=== PATIENT | male | born 1960 | race Caucasian/White ===

== ENCOUNTER 2021-12-18 22:30 | Inpatient (IN) | payer MEDICARE ==
[~2021-12-18] VITALS: Ht 185.4 cm; Wt 140.3 kg
[2021-12-18 23:07] LABS: BASO % 0.5 % (0.0-2.0); EOS # 0.4 K/mm3 (0.0-0.7); EOS % 5.5 % (0.0-4.0); GRAN # 4.8 K/mm3 (1.4-6.5); GRAN % 59.9 % (42.2-75.2); HEMATOCRIT 45.5 % (42.0-52.0); HEMOGLOBIN 15.5 g/dl (13.5-18.0); LYMPH # 1.8 K/mm3 (1.2-3.4); MEAN CELL VOLUME 87 fl (80.0-100.0); MEAN CORPUSCULAR HEMOGLOBIN 30 pg (27-31); MEAN CORPUSCULAR HGB CONC 34 g/dl (33.0-37.0); MEAN PLATELET VOLUME 10.3 fl (7.4-10.4); MONO # 0.8 K/mm3 (0.1-0.6); MONO % 10.5 % (1.7-9.3); PLATELET COUNT 289 K/mm3 (130-400); RED BLOOD COUNT 5.26 M/mm3 (4.20-5.60); REDCELL DISTRIBUTION WIDTH-CV 13.8 % (11.5-14.5)
[2021-12-18 23:20] LABS: ARTERIAL BLD GAS O2 SATURATION 96.9 % (92-100); ARTERIAL BLD GAS TCO2 CT 26.3; ARTERIAL BLOOD GAS BASE EXCESS 0.4 (-2-2); ARTERIAL BLOOD GAS PCO2 40.7 mmHg (35-45); ARTERIAL BLOOD GAS PO2 88.9 mmHg (80-100); ARTERIAL BLOOD GAS pH 7.41 (7.35-7.45)
[2021-12-18 23:21] LABS: ALBUMIN 2.9 gm/dL (3.4-4.8); BILIRUBIN,TOTAL 0.4 mg/dL (0.2-1.2); C-REACTIVE PROTEIN 1.8 mg/dL (0.00-0.50); CALCIUM 9.8 mg/dL (8.4-10.2); CREATININE, serum 0.85 mg/dL (0.72-1.25); POTASSIUM 4.2 mmol/L (3.5-4.5); TOTAL PROTEIN 7.1 gm/dL (6.2-8.1)
[2021-12-18 23:28] LABS: INR 1.1 (0.8-3.0); PROTHROMBIN TIME 11.9 SECONDS (9.7-12.8)
[2021-12-18 23:31] LABS: TROPONIN-I 0.057 ng/mL (0.00-0.033)
[2021-12-19] VITALS (108 sets, daily range): BP systolic 107–165; BP diastolic 65–99; PULSE 62–108; TEMP 97.9–101.9; O2SAT 78–100
[2021-12-19] MEDS ORDERED: PRAVACHOL 20MG20 MG PO (02:36)
[2021-12-19] MEDS ORDERED: OMEGA-3 1000 MG1 CAP PO (02:36)
[2021-12-19] MEDS ORDERED: LOFIBRA160 MG PO (02:36)
[2021-12-19] MEDS ORDERED: LASIX 20MG TABL20 MG PO (02:36)
[2021-12-19] MEDS ORDERED: ZESTRIL40 MG PO (02:36)
[2021-12-19] MEDS ORDERED: GLUCOPHAGE XR500 M1 PO (02:37)
[2021-12-19] MEDS ORDERED: LOPRESSOR 225 MG/TAB PO ×2 (02:37→03:27)
[2021-12-19] MEDS ORDERED: CYMBALTA 60MG60 MG PO (02:37)
[2021-12-19] MEDS ORDERED: PROSCAR 5MG5 MG PO (02:38)
[2021-12-19] MEDS ORDERED: ASPIRIN 81M81 MG/TA2 PO (02:38)
[2021-12-19] MEDS ORDERED: CLINORIL 2200 MG/TAB PO (02:38)
--- NOTE | 2021-12-19 04:54 | NUR ---
PT RECEIVED FROM ER VIA STRETCHER AT 0340. PT TRANSPORTED ON ROOM AIR, REQUESTED A FEW MINUTES OFF BIPAP TO REST AND HAVE WATER. PULSE OX 94% ON ROOM AIR. PT WITH NOTED DYSPNEA. LUNG SOUNDS COARSE THROUGHOUT. TEMPERATURE FEBRILE AT 101.9. CALL TO NOTIFY FANNY COX. STATES WILL PLACE ORDER FOR TYLENOL AND ADDED ANTIBIOTIC, WELL SECOND SET OF BLOOD CULTURES. AWAITING BLOOD CULTURE DRAW PRIOR TO INITIATING ORDERED ANTIBIOTICS PER NEW CAR GET READY MECHANIC. PT SETTLED INTO BED AND BIPAP REPLACED AFTER APPROXIMATELY 15 MINUTES. TOLERATING WELL. WILL CONTINUE TO MONITOR.
[2021-12-19 06:08] LABS: CHOLESTEROL RISK RATIO 4.8
[2021-12-19 06:29] LABS: TROPONIN-I 6 HR POST INITIAL 0.077 ng/mL (0.00-0.033)
--- NOTE | 2021-12-19 11:47 | NUR ---
REPORT CALLED TO JUSTUS RILEY. ALL QUESTIONS ANSWERED. PT WHEELED UP TO ROOM 347. JUSTUS RILEY MET BEDSIDE. DAUGHTER JANAY UPDATED ON TRANSFER.
--- NOTE | 2021-12-19 11:51 | NUR ---
PT TO ROOM 347 FROM ICU WITH REPORT FROM CESAR RILEY ICU. PT ORIENTED TO ROOM. VOIDED ON ARRIVAL. PT IS A/O X4. O2 @4L PNC. PT DENIES SOB OR NEEDS LATER.
--- NOTE | 2021-12-19 13:58 | NUR ---
TX REFUSED PT WANTS TO SLEEP
[2021-12-20] VITALS (10 sets, daily range): BP systolic 94–161; BP diastolic 45–84; PULSE 60–93; TEMP 97.3–98
--- NOTE | 2021-12-20 00:12 | NUR ---
Report received from OSVALDO Pinto. Patient is A&Ox3 and pleasant. Full body assessment completed and vital signs are WNL. Upon auscultation the patients lower lobes are coarse, patient denies SOA. Patient will be NPO by midnight. Patient denies pain at this time. Call light within reach.
[2021-12-20 06:46] LABS: BASO % 0.2 % (0.0-2.0); GRAN # 14.2 K/mm3 (1.4-6.5); GRAN % 83.4 % (42.2-75.2); HEMATOCRIT 40.7 % (42.0-52.0); HEMOGLOBIN 13.8 g/dl (13.5-18.0); LYMPH # 1.5 K/mm3 (1.2-3.4); LYMPH % 9.1 % (20.0-51.0); MEAN CELL VOLUME 88 fl (80.0-100.0); MEAN CORPUSCULAR HEMOGLOBIN 30 pg (27-31); MEAN CORPUSCULAR HGB CONC 34 g/dl (33.0-37.0); MEAN PLATELET VOLUME 10.6 fl (7.4-10.4); MONO % 6.1 % (1.7-9.3); PLATELET COUNT 339 K/mm3 (130-400); RED BLOOD COUNT 4.62 M/mm3 (4.20-5.60)
[2021-12-20 07:08] LABS: CALCIUM 8.7 mg/dL (8.4-10.2); CREATININE, serum 0.98 mg/dL (0.72-1.25); POTASSIUM 4.3 mmol/L (3.5-4.5)
--- NOTE | 2021-12-20 08:12 | NUR ---
Pt. sitting up in chair at bedside. Attempted to do morning (shift) assessment. Tech here to do Echo. Dr. Salazar also here to see patient. Pt. also scheduled for stress test this morning. Will complete assessment when patient returns to room.
--- NOTE | 2021-12-20 08:12 | NUR ---
Spoke to Melanie SAAVEDRA this am about patient blood sugars and vitals signs. adjustments made to medications. rounded & echo being completed. Will hold off on medication until Lexiscan completed. Patient remains NPO
--- NOTE | 2021-12-20 12:19 | NUR ---
Patient has been back from Radiology (for stress test) for approx 2 hours. Patient is resting in bed. Ice water placed at bedside and jello until lunch is delivered. Patient report chronic arthritis pain currently but denies the need for any pain medications. Call light within his reach. He denies further needs at this time
--- NOTE | 2021-12-20 14:59 | NUR ---
Kraft Digester Operator and SW student met with patient to discuss discharge planning. Patient is tearful upon arrival and states he is sad. Patient advised his dad recently and he was unable to attend the as he was too sick. Patient agrees to answer intake questions. Patient lives in [place] with his , Nneka (ph#[phone]) and also advised his daughter, Lindsay (ph#[phone]) lives in [place]. Patient sees Dr. Justin for primary care and obtains medications from [facility]. Patient uses a cane for ambulation and no other DME. Patient does not use home oxygen but is currently on four liters. Patient states he thinks his daughter may be his DPOA-HC, however SW did not locate copy in EMR. SW also contacted Dr. Justin's office and was advised they do not have any Advance Directives on file. SW discussed Home Health services with patient who states he is agreeable to this, but wants to discuss it with his family. SW contacted patient's and left a voicemail. Discharge Plan: Home with HH
--- NOTE | 2021-12-20 19:30 | NUR ---
Patient sitting up at edge of bed. He did well with dinner. Minimal needs this afternoon. His daughter visisted. Bedside report to Martha.
[2021-12-21 00:21] VITALS: BP 115/61; PULSE 84; TEMP 98
--- NOTE | 2021-12-21 01:01 | NUR ---
Report recevied from Doretha Teresa RN. Patient is A&Ox3 and pleasant. Patient is here due to SOA. Full body assessment completed and vital are WNL. Patients 02 is in the low 90's, patient does not have his oxygen on currently. O2 via NC was placed back on the patient and O2 saturation increased. Patient is tolerating oral medications and foods well. No complaints of pain at this time. Call light within reach.
[2021-12-21 04:05] VITALS: BP 131/97; PULSE 69; TEMP 98.1
[2021-12-21 06:39] LABS: BASO % 0.1 % (0.0-2.0); GRAN # 12.1 K/mm3 (1.4-6.5); GRAN % 85.2 % (42.2-75.2); HEMATOCRIT 42.4 % (42.0-52.0); HEMOGLOBIN 14.2 g/dl (13.5-18.0); LYMPH # 1.5 K/mm3 (1.2-3.4); LYMPH % 10.2 % (20.0-51.0); MEAN CELL VOLUME 89 fl (80.0-100.0); MEAN CORPUSCULAR HEMOGLOBIN 30 pg (27-31); MEAN CORPUSCULAR HGB CONC 34 g/dl (33.0-37.0); MEAN PLATELET VOLUME 10.6 fl (7.4-10.4); MONO # 0.5 K/mm3 (0.1-0.6); MONO % 3.4 % (1.7-9.3); PLATELET COUNT 353 K/mm3 (130-400); RED BLOOD COUNT 4.78 M/mm3 (4.20-5.60); REDCELL DISTRIBUTION WIDTH-CV 13.9 % (11.5-14.5)
[2021-12-21 07:01] LABS: CALCIUM 8.6 mg/dL (8.4-10.2); CREATININE, serum 0.92 mg/dL (0.72-1.25); POTASSIUM 4.5 mmol/L (3.5-4.5)
[2021-12-21 07:55] VITALS: BP 149/74; PULSE 74; TEMP 97.8
--- NOTE | 2021-12-21 09:00 | NUR ---
pt assessment complete. pt shows dyspnea at rest and on exertion. reminded pt to have his O2 on at 4L/min NC. pt is wheezing, but state no complaints of pain at this time. pt tolerated all medicaitions well. pt education on using his IS every hour and that it needs to be done 10x every hour as well. pt stated he would like a shower but only after he is seen by the doctor. SBA while pt got up from chair and back into bed. pt is very independent. Pt is in bed resting awaiting to discharge w/ call light in reach.
[2021-12-21] MEDS ORDERED: PROAIR HFA0.09 MG/AC IH ×2 (10:53)
[2021-12-21] MEDS ORDERED: PREDNISONE20 MG PO ×2 (10:56)
[2021-12-21] MEDS ORDERED: ZEBETA 5MG5 MG PO ×2 (10:57)
[2021-12-21] MEDS ORDERED: 00186-0370-20 IH ×2 (10:59)
[2021-12-21 11:22] VITALS: BP 134/90; PULSE 59; TEMP 98
--- NOTE | 2021-12-21 11:42 | NUR ---
PT STIING UP IN CHAIR, DAUGHTER IS IN ROOM WITH PT. OXYGEN ON VIA NC. PT DENIES PAIN, IS ANXIOUS TO GO HOME. CARE ET DISCHARGE PLAN DISCUSSED WITH PT ET FAMILY. PT DENIES NEEDS. CALL LIGHT WITHIN REACH.
[2021-12-21] MEDS ORDERED: OXYGEN NASAL.CANN (13:14)
[2021-12-21 15:34] VITALS: BP 148/75; PULSE 73; TEMP 97.5
--- NOTE | 2021-12-21 15:49 | NUR ---
Security Business Analyst met with patient and patient's daughter, Lindsay to discuss discharge planning as patient is set to discharge home today. SW reviewed HH options with patient for [facility] and [facility]. SW faxed a referral to both and Shakira advised they cannot cover that area at this time. Patient is agreeable to use [facility]. SW also discussed home oxygen with patient and he would like to use [facility]. MIKHAIL contacted Judie at [facility] and faxed referral/discharge orders. Judie left MIKHAIL a message that [facility] has approved HH services for patient. MIKHAIL contacted [facility] and faxed referral/orders. Karla with [facility] advised a tank will be delivered to patient's room this afternoon. Discharge Plan: Home with [facility] and home oxgyen
--- NOTE | 2021-12-21 18:45 | NUR ---
OXYGEN SUPPLIER HAS BEEN HERE TO GIVE PT HIS HOME OXYGEN. PT ET DAUGHTER IS GIVEN DISCHARGE INSTRUCTIONS ET EDUCATION, VERBALIZES UNDERSTANDING. PERIPHERAL IV IN RIGHT AC IS DCED, CATHETER TIP IS INTACT. PT DOES EAT SOME DINNER THAT HE HAD ORDERED. PT DRESSES IN STREET CLOTHES WITH DAUGHTER ASSISTING. PT ESCORTED OUT VIA WC, ACCOMPANIED BY CLAY GIBBONS.
== END 2021-12-21 18:45 | disposition home health service (06) | DRG 190 ==
LOC: COL.ER 22:30 → ICU 12-19 03:00 → SURG 12-19 03:00 → ICU 12-19 11:01 → SURG 12-19 11:46
PROVIDERS: Emergency Medicine; Physician Assistant; Student in an Organized Health Care Education/Training Program; ADMIT Internal Medicine
PROC: 5A09357 Assistance with Respiratory Ventilation, Less than 24 Consecutive Hours, Continuous Positive Airway Pressure (ICD-10-PCS; principal; 2021-12-19)
DX: J44.1 Chronic obstructive pulmonary disease with (acute) exacerbation (principal); J96.01 Acute respiratory failure with hypoxia; I21.A1 Myocardial infarction type 2; Z68.41 Body mass index [BMI] 40.0-44.9, adult; I11.0 Hypertensive heart disease with heart failure; E11.9 Type 2 diabetes mellitus without complications; E78.5 Hyperlipidemia, unspecified; N40.0 Benign prostatic hyperplasia without lower urinary tract symptoms; L40.9 Psoriasis, unspecified; F32.A Depression, unspecified; F17.210 Nicotine dependence, cigarettes, uncomplicated; D72.19 Other eosinophilia; F12.10 Cannabis abuse, uncomplicated; M19.90 Unspecified osteoarthritis, unspecified site; E66.9 Obesity, unspecified; B97.29 Other coronavirus as the cause of diseases classified elsewhere; G47.33 Obstructive sleep apnea (adult) (pediatric); I50.9 Heart failure, unspecified; I25.2 Old myocardial infarction; Z79.82 Long term (current) use of aspirin; Z23 Encounter for immunization
CPT/HCPCS: 99233-AI; 99239; A9284; A9500; J0456; J0696; J1650; J1815; J1940; J2060; J2785; J2920; J2930; J7050; J7512; Q9967

== ENCOUNTER → 2022-01-26 | Outpatient (CLI) | payer MEDICARE ==
[~2022-01-26] MED LIST: 00186-0370-20 IH; ASPIRIN 81M81 MG/TA2 PO; CLINORIL 2200 MG/TAB PO; CYMBALTA 60MG60 MG PO; GLUCOPHAGE XR500 M1 PO; LASIX 20MG TABL20 MG PO; LOFIBRA160 MG PO; LOPRESSOR 225 MG/TAB PO; OMEGA-3 1000 MG1 CAP PO; OXYGEN NASAL.CANN; PRAVACHOL 20MG20 MG PO; PREDNISONE20 MG PO; PROAIR HFA0.09 MG/AC IH; PROSCAR 5MG5 MG PO; ZEBETA 5MG5 MG PO; ZESTRIL40 MG PO
[2022-01-26 12:37] LABS: BASO # 0.1 K/mm3 (0.0-0.2); BASO % 0.7 % (0.0-2.0); EOS # 0.4 K/mm3 (0.0-0.7); EOS % 4.8 % (0.0-4.0); GRAN # 4.5 K/mm3 (1.4-6.5); GRAN % 60.5 % (42.2-75.2); HEMATOCRIT 42.3 % (42.0-52.0); HEMOGLOBIN 14.9 g/dl (13.5-18.0); LYMPH # 1.9 K/mm3 (1.2-3.4); LYMPH % 25.2 % (20.0-51.0); MEAN CELL VOLUME 85 fl (80.0-100.0); MEAN CORPUSCULAR HEMOGLOBIN 30 pg (27-31); MEAN CORPUSCULAR HGB CONC 35 g/dl (33.0-37.0); MEAN PLATELET VOLUME 10.4 fl (7.4-10.4); MONO # 0.6 K/mm3 (0.1-0.6); MONO % 8.1 % (1.7-9.3); PLATELET COUNT 282 K/mm3 (130-400); RED BLOOD COUNT 4.98 M/mm3 (4.20-5.60); REDCELL DISTRIBUTION WIDTH-CV 13.6 % (11.5-14.5)
== END ==
LOC: COL.LAB 12:04
PROVIDERS: Internal Medicine
DX: J44.9 Chronic obstructive pulmonary disease, unspecified (principal)

== ENCOUNTER 2022-08-05 10:15 | Inpatient (IN) | payer MEDICARE ==
[~2022-08-05] VITALS: Ht 185.5 cm; Wt 145.5 kg
[~2022-08-05 10:15] MED LIST changes: +AMITRIPTYLINE H25 M1 PO; +ASPI325T6 PO; +GLUCOTROL10 MG PO; +ROXICODONE 55 MG/TAB PO; +SEROQUEL 2525 MG/TAB PO; +TYLENOL 500MG500 MG PO
[2022-12-01] VITALS (12 sets, daily range): BP systolic 93–144; BP diastolic 47–75; PULSE 45–77; TEMP 97.3–98.1
[2022-12-01] MEDS ORDERED: ASPIRIN 32325 MG/TAB PO (06:32)
[2022-12-01] MEDS ORDERED: FOLIC ACID 11 MG/TA1 PO (06:37)
[2022-12-01] MEDS ORDERED: AMBIEN 10MG10 MG PO (06:38)
[2022-12-01] MEDS ORDERED: METHOTREXA2.5 MG/TAB PO (06:39)
--- NOTE | 2022-12-01 09:55 | NUR ---
PATIENT ADMITED INTO ROOM 331 POST OP. A&O. VSS. PACU REPORTED SOME PVC'S ON MONITOR WHICH IS REPORTED NORMAL FOR HIM. 02 @ 4L PER NC WITH SATS IN MID 90'S. NO C/O PAIN OR NAUSEA AT THIS TIME. RTK DSG IS CD&I WITH ACEWRAP AND ICE PACK INPLACE. TEDS TO LLE. SCD'S TO BLE. HEAD TO TOE ASSESSMENT COMPLETE. ORIENTED TO ROOM. NO FAMILY AT BEDSIDE. CALL LIGHT IN REACH. PATIENT RESTING.
--- NOTE | 2022-12-01 11:30 | NUR ---
PATIENT C/O PAIN IN RLE AND REQUESTING SOMETHING FOR PAIN. GAVE PRN ROXICODONE. PATIENT SITTING UP IN BED WITH LUNCH TRAY. FAMILY AT BEDSIDE. CALL LIGHT IN REACH.
--- NOTE | 2022-12-01 14:20 | NUR ---
PATIENT SLEEPING SOUNDLY. NO FAMILY AT BEDSIDE. NO NEEDS. CALL LIGHT IN REACH.
--- NOTE | 2022-12-01 15:15 | NUR ---
PATIENT DISCHARGING HOME VIA WC TO PERSONAL VEHICLE WITH DAUGHTER. ENVIRONMENTAL TECHNICIAN TALKED WITH PATIENT AND DAUGHTER ABOUT HOME HEALTH. DISCHARGE INSTRUCTIONS GIVEN, ANSWERED QUESTIONS/CONCERNS, E-SCRIPTS SENT, AND DISCUSSED F/U APT. NO IV SITE. PATIENT IS DRESSED, PACKED AND DISCHARGED.
--- NOTE | 2022-12-01 20:25 | NUR ---
Patient A/O, head to toe assessment done, see shift assessment, complained of pain which he rate it as 7/10, oxycodone given, denies nausea, denies further needs at this time, call light and personal items within reach, will continue to monitor.
--- NOTE | 2022-12-02 01:08 | NUR ---
Bladder scanned the patient d/t patient reports he hasn't voided since 399 and it was 238ml, will continue to monitor.
[2022-12-02 02:55] VITALS: BP 139/74; PULSE 68; TEMP 97.5
--- NOTE | 2022-12-02 03:26 | NUR ---
Patient has finally voided 580ml of xena urine.
--- NOTE | 2022-12-02 07:00 | NUR ---
awake resting in bed, bedside shift report received from OSVALDO Dimas
[2022-12-02 07:40] LABS: HEMATOCRIT 37.1 % (42.0-52.0); HEMOGLOBIN 12.5 g/dl (13.5-18.0)
--- NOTE | 2022-12-02 07:41 | NUR ---
0700 Report received from business school dean RN at this time. This [facility] student nurse discussed plan of care and care coordination with patient's primary nurse OSVALDO Guzman.
--- NOTE | 2022-12-02 07:42 | NUR ---
0714 Daily assessment completed at this time (see shift assessment). Patient resting in bed with right leg elevated in pillow. Gripper socks to bilateral feet, SHEREEN sock to left leg and iggy wrap to right leg. Patient just received breakfast upon this nurse finishing assessment. Call light within reach. Patient requested to be left alone for one hour to rest.
[2022-12-02 07:49] VITALS: BP 167/62; PULSE 42; TEMP 97.5
--- NOTE | 2022-12-02 07:49 | NUR ---
Primary nurse alerted of patient's elevated blood pressure.
--- NOTE | 2022-12-02 08:00 | NUR ---
KERI Sung in to see patient, patient informed student RN that he had a moment of confusion but he is OK now, did appear to be falling asleep while talking with PA, does try to joke and at times unsure if he is joking or confused
[2022-12-02] MEDS ORDERED: ASPI325T6 PO (08:05)
[2022-12-02] MEDS ORDERED: CELEBREX 200MG200 MG PO (08:05)
[2022-12-02] MEDS ORDERED: TYLENOL 500MG500 MG PO (08:06)
[2022-12-02] MEDS ORDERED: ROXICODONE 55 MG/TAB PO (08:06)
--- NOTE | 2022-12-02 08:25 | NUR ---
physical therapy in and worked with patient, therapist states as he was going back into room he started saying he was "going down", therapist was able to get help and assist him th a WC
--- NOTE | 2022-12-02 08:30 | NUR ---
INT is out and was most likely pulled out while working with physical therapy, patient is alert and oriented to self and place but thought it was evening and not morning, reoriented at this time, chair alarm will be placed, full assessment completed, see interventions for further info,
--- NOTE | 2022-12-02 08:31 | NUR ---
Tegaderm dressing changed to peripheral IV site in left hand. IV patent, flushes with slight difficulty.
--- NOTE | 2022-12-02 08:50 | NUR ---
Initial visit; Patient thanked Nurse Researcher for looking in on him and offering spiritual care. Nurse Researcher offered God's blessings and wished patient well. Patient is worried about dying and has questions though nurses came in. Nurse Researcher told him to read God's Word, ask for forgiveness for anything he has done that he knows was wrong, and pray...get to know God. Patient could profit from further Spiritual Care.
--- NOTE | 2022-12-02 09:02 | NUR ---
This nurse entered patient's room to retreive ice pack to refill. Patient stated "I'm trying to sext with my and I cannot do that when you nurses are in and out of here." Patient was reminded of appropriate communication and boundaries. Ice pack was refilled and returned to patient. No other comments were made during this interaction.
--- NOTE | 2022-12-02 09:11 | NUR ---
Chair alarm placed beneath patient with occupational therapy assistance. Patient asked this nurse was day it was and again ensenuated that it was evening time. Patient was reoriented to date and time of day. OT in with patient now.
--- NOTE | 2022-12-02 09:54 | NUR ---
0709 Patient was previously noted to have sweated greatly during physical therapy. This nurse offered patient to do a bed bath. Patient agreed thankfully. Patient was given soapy washcloth in which he washed himself with. Patient was then given clean wet washcloth to rinse with. This nurse assisted patient with washing of his back. Patient is resting in his recliner with his feet up, ice on his right knee, and utilizing his phone. Call light is within reach. Chair alarm is beneath him. Patient was reminded of safety awareness and importance of utilizing call light.
[2022-12-02 11:27] VITALS: BP 138/54; PULSE 52; TEMP 98.1
--- NOTE | 2022-12-02 11:30 | NUR ---
reviewed assessment completed by student and in agreement with that assessment
--- NOTE | 2022-12-02 11:34 | NUR ---
was assisted back to bed by student, resting there looking at phone
--- NOTE | 2022-12-02 12:07 | NUR ---
C/O pain 07/02, medicated with roxicodone 10mg po
--- NOTE | 2022-12-02 13:15 | NUR ---
states pain med was somewhat effective but still having pain 7/10 but dozing at intervals while eating
--- NOTE | 2022-12-02 14:19 | NUR ---
physical therapy in and working with patient
--- NOTE | 2022-12-02 14:27 | NUR ---
Record Keeper met with patient to discuss discharge planning. Patient lives in [place] with his , Nneka (ph#[phone]) who is on speakerphone during intake. Patient sees Dr. Justin for primary care and obtains medications from [facility]. Patient does report difficulty affording his medications. Nneka advised she has Medicaid, but patient was denied Medicaid based on their income. Nneka stated she qualified due to her cancer diagnosis. Nneka advised they use discount programs to help afford needed medications. Patient has a walker, shower chair, and grab bars at home. Patient stated he also has home oxygen through [facility]. Patient is normally independent with ADLS. Patient would like Home Health services at time of discharge. Patient has used [facility] in the past and would like to use them again. MIKHAIL contacted Rivas at [facility] and faxed referral. Discharge Plan: Home with [facility]
[2022-12-02 15:44] VITALS: BP 151/62; PULSE 88; TEMP 99.3
--- NOTE | 2022-12-02 16:37 | NUR ---
continues to c/o pain when up and moving, assisted up to bathroom and then back to bed, daughter at bedside,
--- NOTE | 2022-12-02 17:55 | NUR ---
sitting up in bed and finishing supper, c/o pain and medicated with roxicodone 10mg po
--- NOTE | 2022-12-02 19:01 | NUR ---
bedside shift report given to OSVALDO Dimas
[2022-12-02 19:42] VITALS: BP 148/62; PULSE 78; TEMP 98.3
--- NOTE | 2022-12-02 20:22 | NUR ---
Patient A/O, doing fine, head to toe assessment done, see shift assessment, dressing to RLE clean, dry and intact, remains on oxygen at 4LPM via nasal prong, denies shortness of air, denies further needs at this time, call light and personal items within reach, will continue to monitor.
[2022-12-02 23:58] VITALS: BP 124/48; PULSE 76; TEMP 97.8
[2022-12-03 03:37] VITALS: BP 144/52; PULSE 91; TEMP 98
[2022-12-03 06:29] LABS: HEMOGLOBIN 11.2 g/dl (13.5-18.0)
[2022-12-03 06:30] LABS: HEMATOCRIT 34.2 % (42.0-52.0)
--- NOTE | 2022-12-03 07:00 | NUR ---
PT RESTING IN BED. PT COMPLAINING OF PAIN TO RIGHT KNEE. PT INFORMED TOO EARLY FOR PRN PAIN MEDS, BUT WILL GIVE SCHEDULED TYLENOL WHEN ABLE. PT HAS CALL LIGHT AND INSTRUCTED TO CALL WITH ALL NEEDS.
[2022-12-03 07:24] VITALS: BP 156/76; PULSE 78; TEMP 97.7
--- NOTE | 2022-12-03 10:19 | NUR ---
PT CLEARED BY PHYSICAL THEREAPY TO DC HOME WITH HHC. CÉSAR ELIZONDO NOTIFIED AND SET UP HHC. PT AND DAUGHTER UPDATED.
--- NOTE | 2022-12-03 10:56 | NUR ---
DISCHARGE INSTRUCTIONS DISUCUSSED WITH PT AND DAUGHTER. ALL QUESITONS ANSWERED. CRYOCUFF INSTRUCTIONS DISCUSSED. PT WHEELED OUT TO TRUCK FOR DISCHARGE. PT HELPED INTO TRUCK WITH DAUGHTER. 1057- PT LEFT CELL PHONE IN ROOM. PTS DAUGHTER CALLED AND NOTIFIED. STATED SHE WILL COME BRAZER ASSEMBLER.
--- NOTE | 2022-12-07 09:03 | NUR ---
dairy farm worker confirmed with Monique at [facility] that they received home health orders on 12/03/22 and that they have started services for the patient.
== END 2022-12-03 10:58 | disposition home health service (06) | DRG 470 ==
LOC: SURG 10-06 07:30 → INPTSU 12-01 05:27 → SURG 12-01 07:30
PROVIDERS: Physician Assistant; ADMIT Orthopaedic Surgery
PROC: 0SRC0J9 Replacement of Right Knee Joint with Synthetic Substitute, Cemented, Open Approach (ICD-10-PCS; principal; 2022-12-01 08:45)
DX: M17.11 Unilateral primary osteoarthritis, right knee (principal); I11.0 Hypertensive heart disease with heart failure; I50.9 Heart failure, unspecified; J44.9 Chronic obstructive pulmonary disease, unspecified; E11.9 Type 2 diabetes mellitus without complications; E78.00 Pure hypercholesterolemia, unspecified; F32.A Depression, unspecified; Z96.612 Presence of left artificial shoulder joint; Z96.611 Presence of right artificial shoulder joint; Z88.5 Allergy status to narcotic agent
CPT/HCPCS: OP; C1713; C1776; J0690; J1100; J2250; J2370; J2405; J2704; J3010; J3370; J7030

== ENCOUNTER 2024-04-15 09:20 | Day surgery (SDC) | payer MEDICARE ==
[~2024-04-15] VITALS: Ht 185.4 cm; Wt 146.2 kg
[~2024-04-15 09:20] MED LIST changes: +AMBIEN 10MG10 MG PO; +ASPIRIN 32325 MG/TAB PO; +CELEBREX 200MG200 MG PO; +FOLIC ACID 11 MG/TA1 PO; +LR 1,000 ML IV SCH; +METHOTREXA2.5 MG/TAB PO; +Ondansetron 4 MG/2 ML VIAL IV PRN
[2024-04-15] MEDS ORDERED: Lidocaine PF 2% (20 MG/ML) 5 ML VIAL ONE (10:05)
[2024-04-15] MEDS ORDERED: FISH OIL1000 MG PO (10:27)
[2024-04-15] MEDS ORDERED: TREMFYA100 MG/1 M SQ (10:27)
[2024-04-15] MEDS ORDERED: NORCO 325 MG-7.1 TAB PO (10:31)
[2024-04-15] MEDS ORDERED: BREZTRI AEROS10.7 GM IH (10:32)
[2024-04-15] MEDS ORDERED: PAMELOR 25MG25 MG PO (10:32)
[2024-04-15 11:45] VITALS: BP 113/78; PULSE 66
[2024-04-15 12:00] VITALS: BP 123/64; PULSE 68
[2024-04-15 12:15] VITALS: BP 144/90; PULSE 68
[2024-04-15 13:28] VITALS: BP 129/92; PULSE 65; TEMP 96.1
--- NOTE | 2024-04-15 13:32 | NUR ---
1010 Patient to [place] [facility] via wheel chair, skin color is mg and breathing is labored. Pt arrives from home without O2, stating he uses 5L via NC at home. He does not have O2 to travel with. Pt placed on O2 via NC at 5L. Color and breathing improved. Patient is alert and oriented, accompanied by his . Consents reviewed and signed by the patient. IV established. LR infusion via gravity at KVO. Call light in reach. Warm blanket provided.
--- NOTE | 2024-04-15 14:37 | NUR ---
1145 PATIENT RETURNS [place] [facility] [place] [facility]. PT AWAKE AND ALERT. RESPIRATIONS UNLABORED. AMBULATED TO RECLINER CHAIR WITH 2:1 SBA. PT DENIES NAUSEA OR ABDOMINAL PAIN. HOOKED UP TO MONITOR AND VS OBTAINED. CALL LIGHT AT SIDE AND PRESENT. 1200 PATIENT TOLERATING WATER AND CHOCOLATE PUDDING WITHOUT NAUSEA OR DIFFICULTY SWALLOWING (EGD ONLY). 1210 DR. CAMPO IN ROOM SPEAKING WITH PATIENT. 1220 D/C INSTRUCTIONS REVIEWED WITH PATIENT. PT VERBALIZED UNDERSTANDING AND A COPY OF INSTRUCTIONS PROVIDED IN D/C FOLDER. 1230 PATIENT DRESSES SELF. 1240 PATIENT DISCHARGED FROM UNIT VIA W/C TO A PERSONAL VEHICLE. PT LEFT HOSPITAL IN STABLE CONDITION.
== END 2024-04-15 12:40 | disposition home or self-care (01) ==
LOC: SDCO 09:20
DX: Z12.11 Encounter for screening for malignant neoplasm of colon (principal); D12.0 Benign neoplasm of cecum; D12.2 Benign neoplasm of ascending colon; D12.3 Benign neoplasm of transverse colon; D12.5 Benign neoplasm of sigmoid colon; K64.0 First degree hemorrhoids; K63.5 Polyp of colon; Z86.16 Personal history of COVID-19
CPT/HCPCS: J2704; J7120